=== PATIENT | female | born 1975 | race Caucasian/White ===

== ENCOUNTER 2019-02-08 12:10 | Outpatient (CLI) | payer OTHER | END 2019-02-08 12:11 | disposition home or self-care (01) | LOC: DTY/OP 12:10 | PROVIDERS: ATTEND Surgery | DX: E66.01 Morbid (severe) obesity due to excess calories (principal) | CPT/HCPCS: 97802 ==

== ENCOUNTER 2019-03-17 14:25 | Outpatient (CLI) | payer OTHER | END 2019-03-17 14:26 | disposition home or self-care (01) | LOC: DTY/OP 14:25 | PROVIDERS: ATTEND Surgery | DX: E66.01 Morbid (severe) obesity due to excess calories (principal) | CPT/HCPCS: 97802 ==

== ENCOUNTER 2019-04-13 14:56 | Outpatient (CLI) | payer OTHER | END 2019-04-13 14:57 | disposition home or self-care (01) | LOC: DTY/OP 14:56 | PROVIDERS: ATTEND Family Medicine | DX: E66.01 Morbid (severe) obesity due to excess calories (principal) | CPT/HCPCS: 97802 ==

== ENCOUNTER 2019-05-13 13:35 | Outpatient (CLI) | payer OTHER | END 2019-05-13 13:36 | disposition home or self-care (01) | LOC: DTY/OP 13:35 | PROVIDERS: ATTEND Surgery | DX: E66.01 Morbid (severe) obesity due to excess calories (principal) | CPT/HCPCS: 97802 ==

== ENCOUNTER 2019-06-30 11:48 | Outpatient (CLI) | payer OTHER | END 2019-06-30 11:49 | disposition home or self-care (01) | LOC: DTY/OP 11:48 | PROVIDERS: ATTEND Surgery | DX: E66.01 Morbid (severe) obesity due to excess calories (principal) | CPT/HCPCS: 97802 ==

== ENCOUNTER 2019-07-29 12:56 | Outpatient (CLI) | payer OTHER | END 2019-07-29 12:57 | disposition home or self-care (01) | LOC: DTY/OP 12:56 | PROVIDERS: ATTEND Surgery | DX: E66.01 Morbid (severe) obesity due to excess calories (principal) | CPT/HCPCS: 97802 ==

== ENCOUNTER 2019-09-06 08:06 | Outpatient (CLI) | payer OTHER ==
--- NOTE | 2019-09-06 16:21 | RAD ---
TWO VIEW CHEST: History: Pre-op evaluation. Comparison: None. FINDINGS: Lung tijerina are clear. Heart and mediastinum appear normal. Osseous structures appear normal. Epidura l stimulator leads are noted extending through the midthoracic spine. IMPRESSION: No acute abnormality. POS: C
[2019-09-06 17:15] LABS: BHCG - Serum Negative (NEGATIVE); Pregs Control Background? CLEAR/WHITE (CLR/WHITE); Pregs Control Bar Appear? YES (CONTROL BAR)
[2019-09-06 17:21] LABS: #Basophils 0.1 thou/uL (0.0-0.2); #Eosinphils 0.4 thou/uL (0.0-0.7); #Lymphocytes 3.1 thou/uL (1.20-3.40); #Monocytes 0.5 thou/uL (0.11-0.59); #Neutrophils 6.7 thou/uL (1.40-6.50); %Basophils 0.8 % (0.0-1.0); %Eosinophils 3.3 % (0.0-10.0); %Lymphocytes 29.1 % (21.0-51.0); %Monocytes 4.9 % (0.0-10.0); Hemoglobin 13.4 g/dL (12.0-16.0); Mean Corpuscular HGB CONC 35.1 g/dL (32.0-36.0); Mean Corpuscular Hemoglobin 31.9 pg (27.0-31.0); Mean Corpuscular Volume 90.9 fL (78.0-98.0); Platelet Count 336 thou/uL (130-400); RBC Distribution Width 12.6 % (11.5-14.5); Red Blood Cell (RBC) Count 4.19 mill/uL (4.20-5.40); White Blood Cell (WBC) Count 10.8 thou/uL (4.8-10.8)
[2019-09-06 17:34] LABS: ALT (SGPT) 23 U/L (8-55); AST (SGOT) 16 U/L (5-34); Albumin 4.6 g/dL (3.5-5.0); Alkaline Phosphatase 97 U/L (40-110); Anion Gap 14 mmol/L (10-20); BUN (Urea Nitrogen) 16 mg/dL (7.0-18.7); Bilirubin, Total 0.4 mg/dL (0.2-1.2); Calc. Creatinine Clearance 0 mL/min (70-130); Calcium 9.6 mg/dL (7.8-10.44); Carbon Dioxide 23 mmol/L (22-29); Chloride 104 mmol/L (98-107); Estimated GFR-MDRD 90; Globulin 3.3 g/dL (2.4-3.5); Glucose 103 mg/dL (70-105); Potassium 3.6 mmol/L (3.5-5.1); Protein, Total 7.9 g/dL (6.0-8.3); Sodium 137 mmol/L (136-145)
[2019-09-06 17:49] LABS: Hemoglobin A1c 5.8 % (4.0-6.0)
== END 2019-09-06 08:07 | disposition home or self-care (01) ==
LOC: LABBT 08:06
PROVIDERS: ATTEND Surgery
DX: Z01.818 Encounter for other preprocedural examination (principal); E66.01 Morbid (severe) obesity due to excess calories
CPT/HCPCS: 71046; 80053; 83036; 84703; 85025; 93005; 93010

== ENCOUNTER 2019-09-06 16:00 | Inpatient (IN) | payer OTHER ==
[2019-09-08] MEDS ORDERED: Heparin 5,000 UNITS/ML VIAL ONE (10:15)
[2019-09-08] MEDS ORDERED: Midazolam HCl 2 mg/2 ml Vial ONE ×2 (11:05→13:11)
[2019-09-08] MEDS ORDERED: Rocuronium Bromide 10 MG/ML (10ML VIAL) ONE (11:06)
[2019-09-08] MEDS ORDERED: Ondansetron PF 4 MG/2 ML Vial ONE (11:06)
[2019-09-08] MEDS ORDERED: EPHEDRINE 25 MG/5 ML SYRINGE ONE (11:06)
[2019-09-08] MEDS ORDERED: Glycopyrrolate 0.2 MG/ML 5 ML SYRINGE ONE (11:06)
[2019-09-08] MEDS ORDERED: Lidocaine 1% PF 5 ML VIAL ONE (11:06)
[2019-09-08] MEDS ORDERED: PROPOFOL 200 MG/20 ML VIAL ONE (11:06)
[2019-09-08] MEDS ORDERED: Dexamethasone 20 MG/5 ML VIAL ONE (11:06)
[2019-09-08] MEDS ORDERED: Fentanyl 100 MCG/2 ML VIAL ONE ×4 (13:11→16:16)
[2019-09-08] MEDS ORDERED: Lidocaine 1% w/Epinephrine 1:100K 20 ML VIAL ONE (13:16)
[2019-09-08] MEDS ORDERED: Bupivacaine 0.25% HCL 30 ML VIAL ONE (13:16)
[2019-09-08] MEDS ORDERED: Naloxone HCl 0.4 mg/ml Vial IV PRN (15:00)
[2019-09-08] MEDS ORDERED: diphenhydrAMINE 50 MG/ML VIAL IM PRN (15:00)
[2019-09-08] MEDS ORDERED: Zolpidem Tartrate 5 MG TAB PO PRN (15:00)
[2019-09-08] MEDS ORDERED: fentaNYL Citrate/PF 2,000 MCG in Sodium Chloride 0.9% 60 ML IV PRN (15:00)
[2019-09-08] MEDS ORDERED: diphenhydrAMINE 25 MG CAP PO PRN (15:00)
[2019-09-08] MEDS ORDERED: diphenhydrAMINE 50 MG/ML VIAL IVP PRN ×2 (15:00→15:32)
[2019-09-08] MEDS ORDERED: Promethazine HCl 25 MG/ML VIAL IM PRN ×3 (15:00→15:32)
[2019-09-08] MEDS ORDERED: Communication Order-Pharmacy FS SCH (15:00)
[2019-09-08] MEDS ORDERED: HYDROmorphone 2 MG/ML VIAL SLOW IVP PRN (15:03)
[2019-09-08] MEDS ORDERED: Promethazine HCl 25 MG/ML VIAL SLOW IVP PRN (15:03)
[2019-09-08] MEDS ORDERED: Ondansetron HCl/PF 4 MG/2 ML Vial IVP PRN (15:03)
[2019-09-08] MEDS ORDERED: Dextrose 50% Abboject 50 ML SYRINGE SLOW IVP PRN (15:32)
[2019-09-08] MEDS ORDERED: Ondansetron PF 4 MG/2 ML Vial IVP PRN (15:32)
[2019-09-08] MEDS ORDERED: Hydrocodone-Acetamin 15 ML UDCUP PO PRN (15:32)
[2019-09-08] MEDS ORDERED: Dextrose 5% in Water 1,000 ML IV PRN (15:32)
[2019-09-08] MEDS ORDERED: hydrALAZINE 20 MG/ML VIAL SLOW IVP PRN (15:32)
[2019-09-08] MEDS ORDERED: HYDROmorphone 0.5 MG/0.5 ML SYRINGE ONE (15:53)
[2019-09-08] MEDS ORDERED: Promethazine HCl 25 MG/ML VIAL ONE (16:26)
--- NOTE | 2019-09-08 17:04 | OP ---
DATE OF PROCEDURE: 09/08/2019 PREOPERATIVE DIAGNOSES: 1. Morbid obesity with a body mass index of 42. 2. Hypertension. POSTOPERATIVE DIAGNOSES: 1. Morbid obesity with a body mass index of 42. 2. Hypertension. PROCEDURES PERFORMED: 1. Laparoscopic sleeve gastrectomy with [place] staple line reinforcement, 38-Frisian bougie. 2. Esophagogastroduodenoscopy. ANESTHESIA: General. ESTIMATED BLOOD LOSS: Minimal. COMPLICATIONS: None. SPECIMEN: Stomach. FINDINGS: Normal postoperative EGD. DESCRIPTION OF PROCEDURE: The patient was taken to the operating room and laid supine on the operating room table. After general anesthetic was obtained, the arms and legs were double strapped to bariatric table. OG tube was used to decompress the stomach. The abdomen was prepped and draped in a sterile fashion. Left subcostal 5 mm Optiview trocar was placed in the usual fashion. High-flow pneumoperitoneum was obtained. Left and right abdominal 12-mm ports as well as right subcostal 5-mm port were placed under direct visualization. A 5-mm incision was made at the xiphoid and Amanda was used to raise the liver off the GE junction. Short gastric was taken down from mid body of stomach to the left mario of diaphragm. Left mario, angle of His, and posterior fundus completely dissected. Short gastric was taken down to a distance of 6 cm proximal to the pylorus. Multiple loads of an [place] stapling device were used to perform the sleeve, the first was fired up at a distance of 6 cm proximal to the pylorus. Care was taken to avoid being too close to the incisura. Multiple loads were then fired up along the Bougie. The stomach was completely transected at the angle of His. The stomach was removed from the left abdominal incision. This fascial defect was closed using GraNee needle and 0 Vicryl tie. All port sites were infiltrated using local anesthetic. All ports were removed under camera visualization. Pneumoperitoneum was let down. An EGD scope had been placed and showed no stricture at the incisura before the pneumoperitoneum was let down. The Amanda had been removed under direct visualization without bleeding. All incisions were irrigated and closed using 4-0 Monocryl and Dermabond. The patient was sent to Recovery in stable condition. All instrument counts, needle counts, and lap counts were correct. Job ID: [id number]
[2019-09-08 18:43] VITALS: BMI 41.3
[2019-09-08] MEDS: D5 1/2 NS w/20 mEq KCL 1,000 ML IV SCH (18:56)
[2019-09-08] MEDS: Ondansetron PF 4 MG/2 ML Vial IVP PRN (18:56)
[2019-09-08] MEDS ORDERED: Enoxaparin Sodium 40 MG/0.4 ML SYRINGE SC SCH (21:00)
[2019-09-09] MEDS: D5 1/2 NS w/20 mEq KCL 1,000 ML IV SCH ×2 (01:52→08:47)
[2019-09-09 05:43] LABS: #Basophils 0.1 thou/uL (0.0-0.2); #Lymphocytes 1.2 thou/uL (1.20-3.40); #Monocytes 0.8 thou/uL (0.11-0.59); #Neutrophils 12.4 thou/uL (1.40-6.50); %Basophils 0.4 % (0.0-1.0); %Eosinophils 0.1 % (0.0-10.0); %Lymphocytes 8.2 % (21.0-51.0); %Monocytes 5.6 % (0.0-10.0); %Neutrophils 85.7 % (42.0-75.0); Hemoglobin 11.4 g/dL (12.0-16.0); Mean Corpuscular Hemoglobin 30.7 pg (27.0-31.0); Mean Corpuscular Volume 90.3 fL (78.0-98.0); Mean Platelet Volume 7.6 fL (7.4-10.4); Platelet Count 333 thou/uL (130-400); RBC Distribution Width 12.5 % (11.5-14.5); Red Blood Cell (RBC) Count 3.73 mill/uL (4.20-5.40); White Blood Cell (WBC) Count 14.4 thou/uL (4.8-10.8)
[2019-09-09] MEDS ORDERED: Levothyroxine Sodium 88 MCG TAB PO SCH (06:00)
[2019-09-09 06:19] LABS: Anion Gap 13 mmol/L (10-20); BUN (Urea Nitrogen) 8 mg/dL (7.0-18.7); Calc. Creatinine Clearance 167 mL/min (70-130); Carbon Dioxide 22 mmol/L (22-29); Chloride 106 mmol/L (98-107); Estimated GFR-MDRD 90; Potassium 4.7 mmol/L (3.5-5.1); Sodium 136 mmol/L (136-145)
[2019-09-09 06:20] LABS: Calcium 8.8 mg/dL (7.8-10.44); Glucose 152 mg/dL (70-105)
[2019-09-09 07:25] VITALS: BP 121/76; TEMP 98.3
[2019-09-09] MEDS: Ondansetron PF 4 MG/2 ML Vial IVP PRN (08:55)
[2019-09-09] MEDS ORDERED: Pantoprazole 40 MG VIAL IVP SCH (09:00)
[2019-09-09] MEDS ORDERED: Hydrocodone-Acetamin 15 ML UDCUP PO PRN (09:22)
--- NOTE | 2019-09-09 10:40 | DIS ---
DATE OF ADMISSION: 09/08/2019 DATE OF DISCHARGE: 09/09/2019 ADMITTING DIAGNOSES: 1. Morbid obesity. 2. Hypertension. DISCHARGE DIAGNOSES: 1. Morbid obesity. 2. Hypertension. PROCEDURE PERFORMED: Laparoscopic sleeve gastrectomy by Dr. Kumar without complication. CONDITION ON DISCHARGE: Improved. STAFF: Mat Kumar MD HOSPITAL COURSE: On postop day 1, the patient is doing well. She is tolerating the liquid diet without difficulty. She is ambulatory. Her pain is controlled. She is discharged. She will return to see me in the office in 2 weeks. She will continue her home levothyroxine. I have already sent in for Lortab Elixir, Zofran, and pantoprazole. Follow up with me in 2 weeks. Job ID: [id number]
--- NOTE | 2019-09-09 18:21 | PDOC.GSPN ---
Surgery Progress Note: Subj - Subjective Patient reports: tolerating liquids well, nausea (Ms. Ele Hanson is a 44 year old female post-op day 1 from a laparoscopic sleeve gastrectomy. She is recovering well and tolerating clear liquid diet. Reports 5/10 pain in the LUQ. She is able to walk down the hallway but does experience nausea during activity. ) Surgery Progress Note: Obj - Vital signs Vital signs: Vital Signs - Most Recent Temp Pulse Resp BP Pulse Ox 98.3 F 75 14 121/76 95 09/09/19 07:25 09/09/19 07:25 09/09/19 07:25 09/09/19 07:25 09/09/19 08:05 Surgery Progress Note: Results - Labs Result Diagrams: 09/09/19 05:22 09/09/19 05:22 Lab results: Laboratory Results - last 24 hr 09/09/19 05:22 Sodium 136 Potassium 4.7 Chloride 106 Carbon Dioxide 22 Anion Gap 13 BUN 8 Creatinine 0.71 Estimated GFR (MDRD) 90 Glucose 152 H Calcium 8.8 Surgery Progress Note: A/P - Plan Plan: Assessment: 1. Status post sleeve gastrectomy 2. Nausea 3. Hypertension 4. Obesity Plan: Pantoprazole and Ondansetron prescribed for nausea. Patient is recovering well and can be discharged. Schedule post-op follow-up visit with Dr. Kumar. Note: I saw this patient on 09/09/2019 during morning rounds and shared these updates with Dr. Kumar.
== END 2019-09-09 11:00 | disposition home or self-care (01) | DRG 621 ==
LOC: SURG A 09-08 09:45
PROVIDERS: ADMIT Surgery; ATTEND Surgery
PROC: 0DB64Z3 Excision of Stomach, Percutaneous Endoscopic Approach, Vertical (ICD-10-PCS; principal; 2019-09-08)
PROC: 0DJ08ZZ Inspection of Upper Intestinal Tract, Via Natural or Artificial Opening Endoscopic (ICD-10-PCS; 2019-09-08)
DX: E66.01 Morbid (severe) obesity due to excess calories (principal); I10 Essential (primary) hypertension; R11.0 Nausea; Z90.710 Acquired absence of both cervix and uterus; Z90.49 Acquired absence of other specified parts of digestive tract; Z79.899 Other long term (current) drug therapy; Z68.41 Body mass index [BMI] 40.0-44.9, adult
CPT/HCPCS: 36415; 36416; 71046; 80048; 80053; 83036; 84703; 85025; 88307; 88312; 93005; 94760; C9113; J0690; J1100; J1170; J1644; J1650; J2001; J2250; J2405; J2550; J2704; J3010; S0020

== ENCOUNTER 2019-09-14 11:12 | Day surgery (SDC) | payer OTHER ==
[2019-09-14] MEDS ORDERED: Ondansetron PF 4 MG/2 ML Vial SLOW IVP PRN (11:36)
[2019-09-14] MEDS ORDERED: Sodium Chloride 0.9% 1,000 ML IV SCH (11:45)
[2019-09-14] MEDS ORDERED: Multivitamins, Adult 10 ML in Sodium Chloride 0.9% 1,000 ML IV SCH (11:45)
== END 2019-09-14 15:49 | disposition short-term general hospital (02) ==
LOC: ONC/OP 11:12
PROVIDERS: ATTEND Surgery
DX: E86.0 Dehydration (principal)
CPT/HCPCS: 99212; G0463

== ENCOUNTER 2019-09-14 11:42 | Observation (INO) | payer OTHER ==
--- NOTE | 2019-09-14 13:09 | RAD ---
EXAM: Single view of the chest HISTORY: Shortness of breath COMPARISON: None FINDINGS: Single view of the chest shows a normal sized cardiomediastinal silhouette. There is no abril dence of consolidation, mass, or pleural effusion. The bones are unremarkable. A spinal stimulation device is seen in the mid thoracic spine. IMPRESSION: No evidence of acute cardiopulmonary disease
[2019-09-14 13:19] LABS: #Basophils 0.1 thou/uL (0.0-0.2); #Eosinphils 0.4 thou/uL (0.0-0.7); #Lymphocytes 2.6 thou/uL (1.20-3.40); #Monocytes 0.9 thou/uL (0.11-0.59); #Neutrophils 9.4 thou/uL (1.40-6.50); %Basophils 0.6 % (0.0-1.0); %Eosinophils 3.3 % (0.0-10.0); %Lymphocytes 19.5 % (21.0-51.0); %Monocytes 6.5 % (0.0-10.0); %Neutrophils 70.1 % (42.0-75.0); Hemoglobin 13.8 g/dL (12.0-16.0); Mean Corpuscular HGB CONC 34.6 g/dL (32.0-36.0); Mean Corpuscular Hemoglobin 30.7 pg (27.0-31.0); Mean Corpuscular Volume 88.7 fL (78.0-98.0); Mean Platelet Volume 7.7 fL (7.4-10.4); Platelet Count 445 thou/uL (130-400); RBC Distribution Width 12.2 % (11.5-14.5); White Blood Cell (WBC) Count 13.4 thou/uL (4.8-10.8)
[2019-09-14 13:38] LABS: ALT (SGPT) 44 U/L (8-55); AST (SGOT) 18 U/L (5-34); Albumin 4.7 g/dL (3.5-5.0); Alkaline Phosphatase 134 U/L (40-110); Anion Gap 19 mmol/L (10-20); BUN (Urea Nitrogen) 10 mg/dL (7.0-18.7); Bilirubin, Total 0.7 mg/dL (0.2-1.2); Calc. Creatinine Clearance 0 mL/min (70-130); Calcium 10.3 mg/dL (7.8-10.44); Carbon Dioxide 23 mmol/L (22-29); Chloride 100 mmol/L (98-107); Estimated GFR-MDRD 86; Globulin 3.3 g/dL (2.4-3.5); Glucose 110 mg/dL (70-105); Potassium 3.9 mmol/L (3.5-5.1); Sodium 138 mmol/L (136-145)
--- NOTE | 2019-09-14 13:38 | CT ---
CT arteriogram chest with IV contrast and 3-D imaging HISTORY: Chest pain. Dyspnea. FINDINGS: There is good contrast opacification pulmonary arteries and thoracic aorta. Small amount of fluid within the superior pericardial reflection anterior to the aortic arch. No mediastinal adenopathy evident. Minimal left pleural fluid with mild dependent atelectasis at the left base. No evidence of pneumotho rax. Parenchymal scarring and fat necrosis evident within the right breast. Dorsal column stimulator leads of the thoracic spine in place. Postoperative changes along the greate r curvature of the stomach. Spleen measures up to 14.0 cm length by 9.6 cm width. IMPRESSION: No CT evidence of pulmonary embolus. Small amount of pericardial fluid and left pleural fluid. Atelectasis likely related to recent surger y. Mild to moderate splenomegaly. Cause is not evident.
[2019-09-14] MEDS ORDERED: Iopamidol-370 76% 500 ML 1 ML ONE (13:48)
--- NOTE | 2019-09-14 15:01 | HP ---
CHIEF COMPLAINT: Dyspnea. HISTORY OF PRESENT ILLNESS: This is a 44-year-old female who is status post within one week ago laparoscopic gastric sleeve, who presents with nausea and dehydration as well as shortness of breath. I had set her up to be seen in the outpatient infusion center, but the nurse was concerned about shortness of breath. She has been over the emergency room where a CT of the chest, abdomen, and pelvis reveals no obvious PE and no obvious leak, it is within normal limits. She feels better after some IV fluids. She is still dizzy and a little bit short of breath. She has a long ride back to home in [place], [place]. She is being admitted to observation. She states that she has persistent nausea. MEDICAL HISTORY: Hypothyroid. SURGICAL HISTORY: Above. MEDICINES: Levothyroxine. ALLERGIES: NO KNOWN DRUG ALLERGIES. SOCIAL HISTORY: No smoking, alcohol, or other drugs. REVIEW OF SYSTEMS: Ten-system review of systems is otherwise negative unless described above. PHYSICAL EXAMINATION: VITAL SIGNS: Blood pressure is 143/85, pulse is 88, she is afebrile, and O2 saturation is 98% on room air. CHEST: Clear. HEART: Regular rate. ABDOMEN: Soft and nontender. Wound is healing well. EXTREMITIES: No ischemia or edema to extremities. IMAGING STUDIES: CT scan as above. LABORATORY DATA: White blood cell count 13, hemoglobin 13, and platelet count is 445. Sodium 138, potassium 3.9, creatinine 0.74, and glucose 110. Alkaline phosphatase 134, otherwise normal. Lipase normal. ASSESSMENT: 1. Nausea, vomiting, and dehydration. 2. Dyspnea with negative CT. PLAN: Admit to observation. IV fluids. Allow clear liquids. Home tomorrow if feeling better. Job ID: [id number]
[2019-09-14] MEDS ORDERED: Promethazine HCl 25 MG/ML VIAL IM PRN (16:19)
[2019-09-14] MEDS ORDERED: hydrALAZINE 20 MG/ML VIAL SLOW IVP PRN (16:19)
[2019-09-14] MEDS ORDERED: Morphine 4 MG/ML VIAL SLOW IVP PRN (16:19)
[2019-09-14] MEDS ORDERED: Morphine 2 MG/ML SYRINGE SLOW IVP PRN (16:19)
[2019-09-14] MEDS ORDERED: Hydrocodone-Acetamin 15 ML UDCUP PO PRN (16:19)
[2019-09-14] MEDS ORDERED: Ondansetron PF 4 MG/2 ML Vial IVP PRN (16:19)
[2019-09-14] MEDS ORDERED: Dextrose 5% in Water 1,000 ML IV PRN (16:19)
[2019-09-14] MEDS ORDERED: Dextrose 50% Abboject 50 ML SYRINGE SLOW IVP PRN (16:19)
[2019-09-14] MEDS ORDERED: diphenhydrAMINE 50 MG/ML VIAL IVP PRN (16:19)
[2019-09-14 18:23] VITALS: BMI 36.4
[2019-09-14] MEDS ORDERED: Enoxaparin Sodium 40 MG/0.4 ML SYRINGE SC SCH (21:00)
[2019-09-14] MEDS ORDERED: Zolpidem Tartrate 5 MG TAB PO SCH (21:30)
[2019-09-14] MEDS: D5 1/2 NS w/20 mEq KCL 1,000 ML IV SCH (22:14)
[2019-09-15] MEDS: D5 1/2 NS w/20 mEq KCL 1,000 ML IV SCH ×2 (03:17→03:18)
[2019-09-15] MEDS ORDERED: Levothyroxine Sodium 88 MCG TAB PO SCH (06:00)
[2019-09-15 07:46] VITALS: BP 130/77; TEMP 98.2
--- NOTE | 2019-09-15 08:21 | DIS ---
DATE OF ADMISSION: 09/14/2019 DATE OF DISCHARGE: 09/15/2019 ADMITTING DIAGNOSES: 1. Nausea and vomiting. 2. Dehydration. 3. Shortness of breath. DISCHARGE DIAGNOSES: 1. Nausea and vomiting. 2. Dehydration. 3. Shortness of breath. PROCEDURES: None. CONDITION ON DISCHARGE: Improved. HOSPITAL COURSE: The patient was seen in the emergency room for severe shortness of breath and [id number] dehydration. She had CT of the chest, abdomen, and pelvis revealing no obvious leakage, no PE, admitted for IV fluid resuscitation. On the day of discharge, she is doing well and she is discharged home. She will follow up with me in the office next week. She will give my office a call if her symptoms recur. Job ID: [id number]
[2019-09-15] MEDS ORDERED: Pantoprazole 40 MG VIAL IVP SCH (09:00)
--- NOTE | 2019-09-19 01:42 | EKG ---
Test Reason : SOB Blood Pressure : / mmHG Vent. Rate : 078 BPM Atrial Rate : 078 BPM P-R Int : 134 ms QRS Dur : 090 ms QT Int : 422 ms P-R-T Axes : 048 031 031 degrees QTc Int : 481 ms Normal sinus rhythm Prolonged QT Abnormal ECG Confirmed by PETER RAMOS ([id number]), primer expeditor and drier PAUL ABEL ([id number]) on 09/19/2019 1:42:12 AM Referred By: GORDON Confirmed By:PETER Cristobal
== END 2019-09-15 12:44 | disposition home or self-care (01) ==
LOC: ERS 11:42 → SURG B 14:39
PROVIDERS: ADMIT Surgery; ATTEND Surgery
DX: E86.0 Dehydration (principal); R11.2 Nausea with vomiting, unspecified; R06.02 Shortness of breath; E03.9 Hypothyroidism, unspecified; F17.210 Nicotine dependence, cigarettes, uncomplicated; Z79.899 Other long term (current) drug therapy; Z98.84 Bariatric surgery status
CPT/HCPCS: 71045; 71275; 80053; 83690; 84484; 85025; 85379; 93005; 96360; 96361; 96372; 96374; 99212; C9113; G0378; G0463; J1650; Q9967